=== PATIENT | female | born 1995 | race Caucasian/White ===

== ENCOUNTER 2021-05-16 14:09 | Emergency (ER) | payer OTHER, SELFPAY ==
[2021-05-16 14:11] VITALS: BP 142/84; PULSE 81; RESP 16; TEMP 36.8; O2SAT 98; BMI 32.3
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
[2021-05-16] MEDS: iohexol 300 mg/mL 100 mL Btl IV (15:24)
[2021-05-16 15:54] VITALS: RESP 18
[2021-05-16 15:54] LABS: Basophils # 0.1 10^3/uL (0.0-0.1); Basophils % 0.7 %; Eosinophils # 0.4 10^3/uL (0.0-0.8); Eosinophils % 2.9 %; Hematocrit 41.6 % (37.0-47.0); Hemoglobin 13.4 g/dL (11.5-15.3); Lymphocytes # 2.1 10^3/uL (0.8-4.8); Lymphocytes % 15.5 %; Mean Corpuscular HGB Conc 32.2 g/dL (30.0-36.0); Mean Corpuscular Hemoglobin 30.8 pg (28.0-34.0); Mean Corpuscular Volume 95.6 fL (81-99); Mean Platelet Volume 11.4 fL (7.4-10.4); Monocytes # 0.9 10^3/uL (0.2-0.9); Monocytes % 6.7 %; Neutrophils # 10.14 10^3/uL (1.8-7.7); Neutrophils % 73.7 %; Nucleated Red Blood Cells % 0 %; Platelet Count 297 10^3/cmm (130-400); Red Blood Count 4.35 10^6/uL (4.1-5.3); Red Cell Distribution Width 12.9 % (12.1-15.1); White Blood Count 13.8 10^3/uL (4.0-10.0)
[2021-05-16] MEDS: HYDROmorphone 1 mg/mL INJ 1 mL 0.5 MG IVP (15:54)
[2021-05-16] MEDS: tetanus-dipt-pertussis 0.5 mL SDV IM (15:55)
[2021-05-16 15:58] LABS: HCG, Serum Qual Negative (Negative)
[2021-05-16 15:59] LABS: Alanine Aminotransferase 16 U/L (0-33); Albumin Level 3.8 g/dL (3.5-5.2); Alkaline Phosphatase 66 IU/L (35-105); Anion Gap 13.1 (5-19); Aspartate Amino Transferase 18 U/L (0-32); Blood Urea Nitrogen 13 mg/dL (6-20); Calcium 8.6 mg/dL (8.5-10.5); Carbon Dioxide 26 mmol/L (22-29); Chloride 102 mmol/L (98-107); Creatinine Clr Calc Pharmacy 120.9016; Globulin 2.7 g/dL (1.3-4.6); Glomerular Filtration Rate 86.7 mL/min (90-130); Glucose 96 mg/dL (65-115); Lipase 14 U/L (13-60); Osmolality Calculated 284 mOsm/kg (285-295); Potassium 4.1 mmol/L (3.5-5.1); Sodium 137 mmol/L (136-145); Total Bilirubin 0.2 mg/dL (0.15-1.2); Total Protein 6.5 g/dL (6.6-8.7)
[2021-05-16 16:57] VITALS: BP 132/68; PULSE 66; RESP 18; O2SAT 98
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
[2021-05-16 17:27] VITALS: BP 126/72; PULSE 78; RESP 18; O2SAT 100
[2021-05-16 18:26] VITALS: RESP 18
[2021-05-16] MEDS: oxyCODONE-APAP 5-325 mg Tablet 4 TAB PO (18:26)
--- NOTE | 2021-05-16 18:27 | PC.NURSE ---
4 oxycodone dispensed to patient due to early closure of pharmacies
== END 2021-05-16 17:29 | disposition home or self-care (01) ==
PROVIDERS: Emergency Provider Family Medicine
DX: S42.001A Fracture of unspecified part of right clavicle, initial encounter for closed fracture (principal); S06.0X9A Concussion with loss of consciousness of unspecified duration, initial encounter; S13.4XXA Sprain of ligaments of cervical spine, initial encounter; S20.211A Contusion of right front wall of thorax, initial encounter; S46.911A Strain of unspecified muscle, fascia and tendon at shoulder and upper arm level, right arm, initial encounter; S80.812A Abrasion, left lower leg, initial encounter; V86.55XA Driver of 3- or 4- wheeled all-terrain vehicle (ATV) injured in nontraffic accident, initial encounter; Z23 Encounter for immunization
CPT/HCPCS: 29125; 36415; 70450; 71045; 71260; 72125; 72170; 73000; 73030; 73060; 74177; 80053; 83690; 84703; 85025; 90471; 90715; 96374; 99283; J1170; L3650; Q9967

== ENCOUNTER → 2021-06-10 10:10 | Outpatient (BNVA) | payer OTHER, SELFPAY | PROVIDERS: Visit Provider Orthopaedic Surgery | DX: S42.021A Displaced fracture of shaft of right clavicle, initial encounter for closed fracture (principal); X58.XXXA Exposure to other specified factors, initial encounter | CPT/HCPCS: 73000 ==

== ENCOUNTER → 2021-07-06 13:50 | Outpatient (BNVA) | payer OTHER, SELFPAY | PROVIDERS: Visit Provider Orthopaedic Surgery | DX: S42.021A Displaced fracture of shaft of right clavicle, initial encounter for closed fracture (principal); X58.XXXA Exposure to other specified factors, initial encounter | CPT/HCPCS: 73000 ==